=== PATIENT | male | born 1965 | race Caucasian/White ===

== ENCOUNTER 2018-04-26 17:41 | Outpatient (REF) | payer OTHER, SELFPAY ==
[2018-04-26 20:55] LABS: Absolute Basophil Count 0.03 k/cumm (0.0-0.2); Absolute Eosinophil Count 0.25 k/cumm (0.0-0.7); Absolute Lymphocyte Count 2.09 k/cumm (1.2-3.4); Absolute Monocyte Count 0.56 k/cumm (0.11-0.7); Absolute Neutrophil Count 4.21 k/cumm (1.2-6.7); Basophils % 0.4; Eosinophils % 3.5; HCT 43.7 % (40.0-50.0); HGB 15.3 g/dL (13.5-17.5); Lymphocytes % 29.3; Mean Corpuscular Hemoglobin 32.1 pg (27.0-33.0); Mean Corpuscular Volume 91.8 fL (80-95); Mean Platelet Volume 10.9 fL (8.0-11.0); Monocytes % 7.8; Platelet Count 245 x1000/uL (130-400); RBC 4.76 m/cumm (4.50-6.00); RBC Distribution Width 12.5 % (11.8-14.1); White Blood Cell Count 7.14 k/cumm (4.4-10.8)
[2018-04-26 21:09] LABS: ALT 24 U/L (12-78); AST 17 U/L (15-37); Alkaline Phosphatase 54 U/L (46-116); Anion Gap 5.1 mmol/L (3-11); BUN 17 mg/dL (7-18); Bilirubin, Total 0.4 mg/dL (0.2-1.0); C-Reactive Protein 0.25 mg/dL (0.0-0.3); CO2 30.9 mmol/L (21.0-32.0); Calcium 9.1 mg/dL (8.5-10.1); Chloride 105 mmol/L (98-107); Glucose 80 mg/dL (70-100); Potassium 4.1 mmol/L (3.5-5.1); Sodium 141 mmol/L (136-145); TSH (W/Ref FT4) 1.93 uIU/mL (0.358-3.74); Total Protein 6.7 g/dL (6.4-8.2)
[2018-04-26 22:02] LABS: ESR 3 MM/HR (1-20)
[2018-04-28 11:42] LABS: Lyme Ab w Rflx to Lyme Confirm Negative
== END 2018-04-26 18:01 ==
LOC: NCHCN 17:41
PROVIDERS: PCP Family Medicine; Visit Provider Family Medicine
DX: R51 Headache (principal); R53.81 Other malaise; R53.83 Other fatigue
CPT/HCPCS: 80053; 85652; 84443; 85025; 86140; 86618

== ENCOUNTER 2019-03-29 12:45 | Outpatient (REF) | payer SELFPAY ==
[2019-03-29 21:41] LABS: BUN 15 mg/dL (7-18); CREATININE 1.13 mg/dL (0.70-1.30); Calcium 9.1 mg/dL (8.5-10.1); Calculated LDL 129 mg/dL; Chloride 105 mmol/L (98-107); Cholesterol 203 mg/dL (50-200); Glucose 93 mg/dL (70-100); HDL Cholesterol 63 mg/dL (40-60); Sodium 141 mmol/L (136-145); Triglyceride 55 mg/dL (30-150)
[2019-03-29 21:50] LABS: COMMENT (LAB VIEW ONLY) 18.02 mg/dL
== END 2019-03-29 13:05 ==
LOC: NCHCN 12:45
PROVIDERS: PCP Family Medicine; Visit Provider Nurse Practitioner Family
DX: I10 Essential (primary) hypertension (principal); M50.10 Cervical disc disorder with radiculopathy, unspecified cervical region; I48.91 Unspecified atrial fibrillation
CPT/HCPCS: 80048; 80061; 82043; 82570

== ENCOUNTER 2023-04-22 18:09 | Emergency (ER) | payer OTHER, SELFPAY ==
[2023-04-22 18:07] VITALS: BP 151/101; PULSE 62; RESP 14; TEMP 36.3; O2SAT 100
--- NOTE | 2023-04-22 18:15 | DI.RAD_ITS ---
Exam(s) XR KNEE RT 4V AP,LAT,JO,PAT EXAM: XR KNEE RT 4V AP,LAT,JO,PAT CLINICAL HISTORY: injury, hyperflexion, unable to extent knee. TECHNIQUE: 2D digital imaging was performed. COMPARISON: No exams were available for comparison FINDINGS: Four views. There is prominent soft tissue swelling anteriorly and a small osteophytic density seen approximately 2 cm above the superior pole the patella. Findings are suspicious for quadriceps tendon injury. Se samoid bones are noted in the patellar ligament. There also appears to be a joint effusion No patellar dislocation. Tibial plateau is intact. Femoral condyles intact. Minimal degenerative c hanges. IMPRESSION: Findings as above. Suspect quadriceps tendon tear. DATA REPOSITORY: RADIATION DOSE DELIVERED:
--- NOTE | 2023-04-22 18:24 | W.ED.GENAD ---
Discharge Plan Disposition Patient Disposition: Home Discharge Details Clinical Impression: Quadriceps tendon rupture Primary Care Provider: Denisse Byers ED Provider: Martha Lira Home Meds and New Rx's Prescriptions: New oxycodone 5 mg capsule 5 mg PO Q8H PRNQty: 10 0RF Continued aspirin 81 mg tablet 81 mg PO DAILY omega-3 fatty acids [Fish Oil Concentrate] 1,000 mg capsule 1,000 mg PO DAILY flaxseed oil Oil 5 ml MC DAILY turmeric 400 mg capsule PO DAILY triamcinolone acetonide 0.5 % ointment 1 applic TP DAILY magnesium oxide 400 mg magnesium tablet 400 mg PO DAILY Discontinued tramadol 50 mg tablet 50 mg PO HS Discharge Instructions Additional Instructions: Keep your knee immobilizer in place Use crutches with ambulation Take the oxycodone as needed for discomfort, this can cause constipation and is addictive The orthopedist office will call you tomorrow to schedule likely surgery on Thursday, apply ice Return earlier should you have new or worsening complaints Do not take tramadol with oxycodone Stand Alone Forms: Work Release Referrals: Chava Rodriguez MD [ [facility] STAFF PHYSICIAN] - Medical Decision Making This 58-year-old male presents with report of right knee swelling and pain. Unable to extend his knee secondary to weakness, no redness, large right knee effusion without erythema, neurovascularly intact, no tenderness right hip, small abrasion to right hand, flexion and extension intact, tetanus up-to-date X-ray ordered with effusion and small avulsion with concern for quadriceps tendon rupture, case discussed with Dr. Rodriguez who will follow up with patient for likely surgery Thursday Knee immobilizer and crutches supplied HPI General Date/Time Provider Initiated Documentation: 04/22/23 18:18. HPI Narrative: This 58-year-old male presents with report of injury while hiking, hyperflexion injury while hiking and now unable to ambulate on affected leg, unable to extend his knee at all. States this happened just prior to arrival, denies any additional injuries aside from right hand injury which is not bothersome to patient. Tetanus up-to-date. Denies history of coagulopathy. Related Data Home Medications Medication Instructions Recorded Confirmed flaxseed oil 5 ml miscellaneous DAILY 02/13/20 03/27/20 magnesium oxide 400 mg PO DAILY 02/13/20 03/27/20 triamcinolone acetonide 0.5 % 1 applic topical DAILY 02/13/20 03/27/20 topical ointment turmeric 400 mg capsule mg PO DAILY 02/13/20 03/27/20 aspirin 81 mg tablet 81 mg PO DAILY 03/27/20 03/27/20 omega-3 fatty acids 1,000 mg 1,000 mg PO DAILY 03/27/20 03/27/20 capsule (Fish Oil Concentrate) oxycodone 5 mg capsule 5 mg PO Q8H PRN #10 caps 04/22/23 Previous Rx's Medication Instructions Recorded oxycodone 5 mg capsule 5 mg PO Q8H PRN #10 caps 04/22/23 Allergies Allergy/AdvReac Type Severity Reaction Status Date / Time simvastatin Allergy Verified 03/27/20 08:33 Bee stings Allergy Severe Uncoded 03/27/20 08:33 Hay fever Allergy Mild Uncoded 03/27/20 08:33 General Stated Complaint: Orthopedic MAXINE: 4 PFSH All Active Problems (Updated 04/22/23 @ 19:12 by JAYLEN Carbajal) Quadriceps tendon rupture (Acute) Cubital tunnel syndrome, bilateral (Acute) Bilateral carpal tunnel syndrome (Acute) Medical History (Updated 04/22/23 @ 19:12 by JAYLEN Carbajal) Hx of atrial fibrillation without current medication Social History Smoking/Tobacco Use Status: Never Smoking risk assessment performed?: Yes Alcohol Intake: current Details: OCCASIONALLY Drug use: Never Household members: spouse Housing: house Number of Children: 1 Pets and animals: No What is your relationship status?: Panel score (0-1 are the most socially isolated patients): 1 What type of physical activity do you participate in: none Seatbelt use: always Course Vital Signs Vital signs: Vital Signs Temperature 36.3 C L 04/22/23 18:07 Pulse 62 04/22/23 18:07 Respiratory Rate 14 04/22/23 18:07 Blood Pressure 151/101 H 04/22/23 18:07 Pulse Oximetry 100 04/22/23 18:07 Temperature 36.3 C L 04/22/23 18:07 Temperature Source Skin 04/22/23 18:07 Pulse 62 04/22/23 18:07 Respiratory Rate 14 04/22/23 18:07 Blood Pressure 151/101 H 04/22/23 18:07 Pulse Oximetry 100 04/22/23 18:07 Oxygen Delivery Method Room Air 04/22/23 18:07 Oxygen Flow Rate 0 04/22/23 18:07 Pain Level 7 04/22/23 18:07 Comment throbbing 04/22/23 18:07
[2023-04-22] MEDS: oxyCODONE 5 MG TAB PO (18:34)
--- NOTE | 2023-04-22 19:52 | DI.VRAD_ITS ---
PROCEDURE INFORMATION: Exam: XR Left Knee Exam date and time: 04/22/2023 6:43 PM Age: 58 years old Clinical indication: Other: Injury, hyperflexion, unable to extent knee TECHNIQUE: Imaging protocol: Radiologic exam of the left knee. Views: 4 or more views. COMPARISON: No relevant prior studies available. FINDINGS: Bones/joints: There is a tiny 6 mm x 10 mm x 2 mm sliver of bone located approximately 2.5 cm superior to the upper pole of the patella, presumably an acutely avulsed fragment. There are well corticated ossifications inferior to the patella with a chronic appearance, apparently located within the patellar tendon. The distal femur, proximal tibia, and proximal fibula appear intact. There is calcification projecting over the lateral aspect of the lateral meniscus. There is sharpening of the tibial spines. Soft tissues: There is heterogeneous masslike soft tissue density in the expected location of the quadriceps tendon. The patellar tendon appears grossly intact. IMPRESSION: Acute rupture of the quadriceps tendon with avulsion of a 6 mm x 10 mm x 2 mm bony fragment from the upper pole of the patella. MRI could be obtained for further evaluation. Dictated and Authenticated by: Dayo Norris MD. Ordering:LORNE Thomas MD
== END 2023-04-22 19:31 | disposition home or self-care (01) ==
LOC: ER 19:20
PROVIDERS: Emergency Provider Physician Assistant; PCP Family Medicine
DX: S76.111A Strain of right quadriceps muscle, fascia and tendon, initial encounter; W19.XXXA Unspecified fall, initial encounter; Y93.01 Activity, walking, marching and hiking
CPT/HCPCS: 29505; 99284; 73564

== ENCOUNTER 2023-04-24 10:56 | Day surgery (SDC) | payer OTHER, SELFPAY ==
--- NOTE | 2023-04-23 18:39 | W.ANESPRE ---
General Info Date of Service Date Performed: 04/24/23 Height: 5 ft 11 in Weight: 83.915 kg Body Mass Index (BMI): 25.7 Surgical Procedure: Operation Date: 04/24/23 12:40 Proposed Procedure Side Surgeon p Knee Ruptured Quad Tendon Repair Right Chava Rodriguez MD Meds Allergies and Home Medications Allergies Allergy/AdvReac Type Severity Reaction Status Date / Time simvastatin Allergy Verified 04/24/23 11:13 Bee stings Allergy Severe Uncoded 04/23/23 14:41 Hay fever Allergy Mild Uncoded 04/23/23 14:41 Home Medication Medication Instructions Recorded flaxseed oil 5 ml miscellaneous DAILY 02/13/20 magnesium oxide 400 mg PO DAILY 02/13/20 triamcinolone acetonide 0.5 % 1 applic topical DAILY 02/13/20 topical ointment turmeric 400 mg capsule 400 mg PO DAILY 02/13/20 aspirin 81 mg tablet 81 mg PO DAILY 03/27/20 omega-3 fatty acids 1,000 mg 1,000 mg PO DAILY 03/27/20 capsule (Fish Oil Concentrate) oxycodone 5 mg capsule 5 mg PO Q8H PRN #10 caps 04/22/23 tramadol 50 mg tablet 50 mg PO Q8H PRN 04/23/23 Current Visit Medications: Current Medications Generic Name Dose Route Start Last Admin Trade Name Freq PRN Reason Stop Dose Admin Ringer's Solution 1,000 mls @ 30 mls/hr 04/24/23 06:00 IV 04/24/23 23:59 INFUSION MILIND Cefazolin Sodium/Dextrose 2 gm in 50 mls @ 100 mls/hr 04/24/23 06:00 Ancef Duplex IVPB 04/24/23 23:59 PREOP MILIND IV Miscellaneous Supplies 1 each 04/24/23 06:00 Iv Access IV 04/24/23 23:59 DIRECTED MILIND Sodium Chloride 0 ml 04/24/23 06:00 Normal Saline Flush 10 Ml Syr IV 04/24/23 23:59 PRN PRN Sodium Chloride 0 ml 04/24/23 06:00 Normal Saline 10 Ml Vial IJ 04/24/23 23:59 DIRECTED PRN Sterile Water 0 ml 04/24/23 06:00 Water,Injection,Sterile 10 Ml Vial IJ 04/24/23 23:59 DIRECTED PRN PFSH Active Problems Active Problems: Problem Status Onset Code Bilateral carpal tunnel syndrome G56.03 Cubital tunnel syndrome, bilateral G56.23 Rupture of right quadriceps tendon 04/22/23 S76.111A Medical History Medical History (Updated 04/23/23 @ 14:51 by Varun Rodriguez) History of cardioversion x3-last 2017 Hx of atrial fibrillation without current medication Hx of low back pain Hx of vertigo PAF (paroxysmal atrial fibrillation) Surgical History Surgical History (Updated 04/24/23 @ 11:12 by Clarke Quevedo) History of cystoscopy Hx of hernia repair Hx of tonsillectomy Tobacco Smoking/Tobacco Use Status: Never Alcohol Alcohol Intake: current Alcohol intake frequency: holidays/special occasions only Details: OCCASIONALLY Substance Use Substance use: Occasionally Substance use type: marijuana Vital Signs and Lab Results Lab Results Blood Type / Crossmatch: No Data to Display Complete Blood Count: No Data to Display Complete Metabolic Panel: No Data to Display Liver Function Panel: No Data to Display Coagulation Panel: No Data to Display Cardiac Panel: No Data to Display Arterial Blood Gas: No Data to Display Venous Blood Gas: No Data to Display Pancreas Panel: No Data to Display Thyroid Panel: No Data to Display Infectious Disease: No Data to Display Blood Cultures: No Data to Display Toxicology Panel: No Data to Display Anesthesia Assessment and Plan Anesthesia History Personal History: No History of Anesthesia Complications Family History: No Family History of Anesthesia Complications Exercise Tolerance Exercise Tolerance: Metabolic Equivalents>4 Cardiac & Pulmonary Exam Cardiac Exam: Normal S1/S2 Heart Sounds Pulmonary Exam: Clear Bilateral Breath Sounds Implantable Cardiac Device Does patient have a Pacemaker or an ICD?: No Airway Exam Known Difficult Airway: No Mallampati Class: 3 Mouth Opening: Normal (> 3cm) Thyromental Distance: Less than 3 cm Neck Range of Motion: Full ROM Neck Circumference: Normal Teeth Condition: Normal Dentition ASA Classification ASA Score: ASA 2 Emergency Case?: No NPO Status NPO Status: NPO Clears >2 hours, Solids >8 hours Anesthesia Plan Resuscitation Status: Full Code Anesthesia Technique: General Anesthesia Airway Planned: Endotracheal Tube Pain Management: Surgeon and patient request nerve block Monitors Used: Standard Monitors Preoperative Comments:: 58 yo male for quad tendon repair. Sig PMHx: pAfib (CV x 3), vertigo, never smoker, occ EtOH/cannabis. ECHO: [id number]%, no WMA, mild MR.
[2023-04-24] VITALS (12 sets, daily range): BP systolic 104–153; BP diastolic 63–98; PULSE 64–87; RESP 15–22; TEMP 36.5–37.1; O2SAT 96–100; BMI 25.7
--- NOTE | 2023-04-24 10:54 | PDOC.DSDIS_ITS ---
Date of service: 04/24/23 Time of Service: 15:00 Discharge Plan Disposition Patient Disposition: Home Condition: Stable Discharge Details Attending Provider: Chava Rodriguez Primary Care Provider: Denisse Byers Home Meds and New Rx's Prescriptions: New aspirin 81 mg tablet,delayed release (DR/EC) 81 mg PO DAILY 14 Days Qty: 14 0RF naproxen 250 mg tablet 250 - 500 mg PO BID PRNQty: 40 0RF Rx Instructions: take with a meal oxycodone 5 mg tablet 5 - 10 mg PO Q4H MDD 30 mg PRN (Reason: moderate to severe pain) Qty: 18 0RF Continued aspirin 81 mg tablet 81 mg PO DAILY omega-3 fatty acids [Fish Oil Concentrate] 1,000 mg capsule 1,000 mg PO DAILY tramadol 50 mg tablet 50 mg PO Q8H PRN flaxseed oil Oil 5 ml MC DAILY turmeric 400 mg capsule 400 mg PO DAILY triamcinolone acetonide 0.5 % ointment 1 applic TP DAILY magnesium oxide 400 mg magnesium tablet 400 mg PO DAILY oxycodone 5 mg capsule 5 mg PO Q8H PRNQty: 10 0RF Discharge Instructions Additional Instructions: Surgery: Right knee quadriceps tendon repair Activity: Weightbearing in full extension-only for 6 weeks. Use crutches for protection. May use knee brace until comfortable and confident maintaining knee straight with quadriceps. Recommend elevation to minimize swelling and discomf ort. Encourage ankle pumps, wiggle toes, and quad sets to improve circulation and improve muscular control. Restrictions- No active knee extension for 6 weeks. Range of motion: Full extension for 2 weeks followed by 0?30 degrees after week 2 and then advancing 15 degrees/week with goal 0-90 degrees flexion week 6 and 120 degrees flexion week 8. Merged With [facility] protocol Prescriptions: Aspirin 81 mg take 1 daily to prevent a blood clot for 2 weeks Naproxen 250 mg take 1-2 every 12 hours with a meal as needed for moderate pain Oxycodone 5 mg take 1-2 every 4-6 hours as needed for severe pain You may use [id number] Tylenol (acetaminophen) as needed for mild pain. These pain medications may be taken all at once or in different combinations as needed. Also, recommend Colace (docusate) as a stool softener as surgery and pain medicine cause constipation. You may try [id number]-ofa-zgoxmte diphenhydramine (Benadryl) 25-50 mg nightly as a sleep aid Dressings: Loosen/adjust Gee bandages as needed for comfort. May remove knee brace when resting. Keep Band-Aid in place until follow-up. Please keep it clean and dry. Follow-up: 10-[address] Rodriguez You may take off the leg compression stockings this evening at home. You may also leave them on a few days longer if you have a history of leg swelling or edema. Let us know right away if you develop any redness, drainage, fevers, chest pain, or trouble breathing. Do not drink alcohol or drive for at least 24 hours after anesthesia. Please call the office during business hours with any questions or concerns. Discharge Orders Discharge Orders: Discharge Order (Routine); Ordered 04/24/23 Ordered By: Chava Rodriguez DS: Diagnosis Discharge Diagnosis (1) Rupture of right quadriceps tendon: Status: Acute
[2023-04-24] MEDS: Lactated Ringers 1,000 ML 30 ML IV (11:55)
--- NOTE | 2023-04-24 12:18 | ROE_ITS ---
Date of service: 04/24/23 Time of Service: 12:19 Operative Note Operative Note DATE OF PROCEDURE: 04/24/23 PRE-OP DIAGNOSIS: Right quadriceps tendon rupture POST-OP DIAGNOSIS: same PROCEDURE: Right knee quadriceps tendon repair, CPT #17537 SURGEON: Chava Rodriguez OPERATIONAL COMMUNICATION CHIEF: Mona Parra ANESTHESIA TYPE: Local By Surgeon, General LMA/ETT and Primary Nerve Block Refer to Anesthesia Record ESTIMATED BLOOD LOSS: 10 COMPLICATIONS: None Patient was transported to: PACU Patient's condition: stable Indications: Please see complete medical record for details. Findings: Complete quadriceps tendon disruption and fraying remnant superior aspect of the patella with extension through the medial and lateral retinaculums. Single small osteochondral loose body removed from the knee joint through the traumatic arthrotomy. Procedure Description: In the operating room, general anesthesia was induced. The patient was positioned supine on the operating room table. All bony prominences were well- padded. Preoperative antibiotics were administered. The right knee was prepped and draped in the usual sterile fashion. The correct patient, procedure, and side of the procedure were all verified prior to incision. The quadriceps tendon defect at the superior margin of patella was readily palpable. A moderate-sized longitudinal incision centered about the defect was preinjected with 0.25% bupivacaine containing epinephrine. Incision was carried through skin subcutaneous tissue and readily encountered the quadriceps tendon defect and hematoma. The hematoma was evacuated, the knee joint was thoroughly irrigated and swept of any debris including an osteochondral small fragment that was removed and possibly pre-existing per the patient reports. The small osteochondral gladys on x-rays in the quadriceps tendon was identified laterally. The superior margin of patella was thoroughly prepared to optimize bone and tendon healing by debriding frayed tendon, abrading the bone edge, and to suture anchor repair sites were marked. On the corresponding area on the quadriceps tendon a suture tape was then used to run a Krak?w stitch proximal and back distal for both anchors. The 2.5 mm and 3.5 mm drills were then used to predrill through the hard bone for the suture anchors followed by the SwiveLock tap. The patella was maintained in place, knee placed into full extension, and the medial suture tape repair sutures loaded on a 4.75 mm swivel lock anchor with appropriate tension maintained on the quadriceps tendon and a small longitudinal split made to accommodate suture anchor placement and tendon reapproximation to the prepared bone surface. The suture anchor deployed with excellent fixation strength. This was repeated on the lateral side. The repair sutures were cut short. The suture anchors each was double loaded with sliding FiberWire stitches. Sequentially starting medially each pair of FiberWire sutures was shuttled with a free meter back from the anchor deep to superficial and then locked in a ripstop fashion passed a Krak?w suture tape stitch and then tied together for an additional 4 repairs creating an excellent tendon to bone secure and stable interface encompassing the span of the tendon injury and repa ir to bone from medial to lateral. The medial and lateral retinacular defects were inspected and repaired using suture tape [id number] fashion couple stitches both medially and laterally. The patellar surface and quadriceps tendon most superficially had cerda tissue now reapposed likely superficial quadriceps and extensor mechanism and periosteum, which was repaired with 0 Vicryl. The repair was inspected and quite strong and solid. It was stable through flexion to at least 45 degrees without any gapping. The wound was copiously irrigated with normal saline. Subcutaneous tissue was closed using 2-0 Monocryl. Skin closed using 3-0 Monocryl buried running with skin glue applied over the incision followed by a Mepilex Band-Aid. Gentle Gee bandage compression was applied foot ankle leg knee and thigh followed by placement of a knee brace in full extension. The patient awoke from anesthesia without complication and was transferred to the recovery room in a stable condition.
[2023-04-24] MEDS: ceFAZolin 2 GM/50 ML BAG IVPB (12:21)
--- NOTE | 2023-04-24 12:22 | W.ANESNERVE ---
Nerve Block Single Injection Procedure Date and Time Date Performed: 04/24/23 Procedure Start: 12:38 Location Where Procedure Performed Procedure Location: Day Surgery Unit Reason Performed: Postoperative Analgesia Requesting Provider: Chava Rodriguez Timeout Performed Timeout Performed: Yes Monitoring Used ECG, Blood Pressure and SpO2 Sterility Sterility: Hand Hygiene Sedation Given During Procedure Sedation Given (Indicate Dose Given): Versed IV Dose:: 2 mg Patient Mental Status Patient Mental Status: Sedate with meaningful communication Nerve Block 1st Nerve Block: Laterality: Right Block Type: Femoral Ultrasound Image Saved?: No Needle / Catheter Used: 100mm SonoPlex II Local Anesthetic Bolus (Indicate Dose Given): Lidocaine used for local infiltration of skin and Bupivacaine 0.375% Dose:: 20 mL Additives (Indicate Dose Given): Epinephrine to make 1:400,000 (2.5mcg/ml) Dose:: 50 mcg and Precedex Dose:: 50 mcg Ultrasound: Sterile probe cover and gel used Nerve Stimulator: Supplement to Ultrasound use and No twitch or parasthesia noted < 0.5 mA Paresthesia: None Procedure Tolerated: No Complications Procedure Outcome: Successful Performed By: Joey Oneill
[2023-04-24] MEDS: Bupivacaine 0.25% Pres-Free 30 ML VIAL (12:47)
--- NOTE | 2023-04-24 14:40 | W.ANESPOSTOP ---
Postoperative Evaluation Date, Time and Location Date Performed: 04/24/23 Time Performed: 14:40 Patient Location: PACU Vital Signs Most Recent Imported Vital Signs: Most Recent Vital Signs Temp Pulse Resp BP Pulse Ox 36.8 C 80 17 121/67 97 04/24/23 14:36 04/24/23 14:36 04/24/23 14:36 04/24/23 14:36 04/24/23 14:36 Pain Score Most Recent Pain Score: Most Recent Pain Score Pain Level 0 04/24/23 12:15 Assessment Mental Status: Arousable with meaningful communication Airway and Respiratory Function: Patent airway with normal (patient baseline) respiratory exam Cardiovascular Function: Hemodynamically Stable Hydration Status: Adequately Hydrated Nausea & Vomiting: No Nausea or Vomiting Pain: Pain is tolerable per patient Peripheral Nerve Block: Regional nerve block not resolved at time of post operative discharge
== END 2023-04-24 16:00 | disposition home or self-care (01) ==
PROVIDERS: PCP Family Medicine; Visit Provider Student in an Organized Health Care Education/Training Program
PROC: (CPT 27385; principal; 2023-04-24 12:30)
DX: S76.111A Strain of right quadriceps muscle, fascia and tendon, initial encounter (principal); M23.41 Loose body in knee, right knee; I48.0 Paroxysmal atrial fibrillation
CPT/HCPCS: 27385; J0131; J0171; J0690; J1100; J1885; J2250; J2405; J2704; J3475

== ENCOUNTER 2023-04-26 07:25 | Emergency (ER) | payer OTHER, SELFPAY ==
[2023-04-26 07:31] VITALS: BP 133/77; PULSE 81; RESP 16; TEMP 36.8; O2SAT 99
--- NOTE | 2023-04-26 08:30 | ED.GENADUL_ITS ---
Discharge Plan Disposition Patient Disposition: Home Condition: Stable Discharge Details Clinical Impression: Postoperative pain of extremity Primary Care Provider: Denisse Byers ED Provider: Jeff Choi Home Meds and New Rx's Prescriptions: New diazepam [Valium] 2 mg tablet 2 mg PO BID PRN (Reason: spasms) Qty: 10 0RF cephalexin 500 mg capsule 500 mg PO QID Qty: 27 0RF Continued aspirin 81 mg tablet 81 mg PO DAILY omega-3 fatty acids [Fish Oil Concentrate] 1,000 mg capsule 1,000 mg PO DAILY tramadol 50 mg tablet 50 mg PO Q8H PRN flaxseed oil Oil 5 ml MC DAILY turmeric 400 mg capsule 400 mg PO DAILY triamcinolone acetonide 0.5 % ointment 1 applic TP DAILY magnesium oxide 400 mg magnesium tablet 400 mg PO DAILY oxycodone 5 mg capsule 5 mg PO Q8H PRNQty: 10 0RF aspirin 81 mg tablet,delayed release (DR/EC) 81 mg PO DAILY 14 Days Qty: 14 0RF naproxen 250 mg tablet 250 - 500 mg PO BID PRNQty: 40 0RF Rx Instructions: take with a meal oxycodone 5 mg tablet 5 - 10 mg PO Q4H MDD 30 mg PRN (Reason: moderate to severe pain) Qty: 18 0RF Discharge Instructions Additional Instructions: Please take antibiotic as prescribed. Please contact your orthopedic team tomorrow to arrange timely follow-up this week. Return to the ER immediately for any worsening or new concerning symptoms. Referrals: [facility] [Provider Group] Denisse Byers [Primary Care Provider] - Medical Decision Making 58-year-old male presents 2 days status post right quadriceps tendon repair with pain, spasm, erythema and warmth. Patient afebrile. Surgical wound without drainage. Distal leg is mildly erythematous and warm to the touch with intermittent spasm. Toradol 30 mg IM and Valium 2 mg p.o. given for discomfort. I communicated with Dr. Hall who felt highly unlikely to have deep infection at 2 days postop. Suspect bleeding around site and spasms. Will cover with Keflex and have patient follow-up with orthopedics tomorrow in clinic. HPI General Mode of arrival: ambulatory . Date/Time Provider Initiated Documentation: 04/26/23 07:55 . Limitations to Documentation: no limitations . Information obtained by: patient . HPI Narrative: 58-year-old male presents 2 days status post quadriceps tendon repair with complaint of postoperative pain. Patient notes pain and spasm of his right quadriceps with associated redness and warmth. Patient notes area started to have spasm yesterday. Pain is anterior. Area seems more red and warm today. Patient took oxycodone, ibuprofen, Aleve yesterday without relief of symptoms. He has no associated fever. No lower leg swelling or pain. Patient notes he had similar injury and repair of his left quadriceps tendon sometime ago and feels that this postoperative course is different than prior. Patient and both note concern for band of this tape under the skin, oriented horizontally across distal thigh that was apparent yesterday and no longer apparent. Related Data Home Medications Medication Instructions Recorded Confirmed flaxseed oil 5 ml miscellaneous DAILY 02/13/20 04/26/23 magnesium oxide 400 mg PO DAILY 02/13/20 04/26/23 triamcinolone acetonide 0.5 % 1 applic topical DAILY 02/13/20 04/26/23 topical ointment turmeric 400 mg capsule 400 mg PO DAILY 02/13/20 04/26/23 aspirin 81 mg tablet 81 mg PO DAILY 03/27/20 04/26/23 omega-3 fatty acids 1,000 mg 1,000 mg PO DAILY 03/27/20 04/26/23 capsule (Fish Oil Concentrate) oxycodone 5 mg capsule 5 mg PO Q8H PRN #10 caps 04/22/23 04/26/23 tramadol 50 mg tablet 50 mg PO Q8H PRN 04/23/23 04/26/23 aspirin 81 mg tablet,delayed 81 mg PO DAILY Prevent blood clot 04/24/23 04/26/23 release 14 days #14 tabs naproxen 250 mg tablet 250 - 500 mg PO BID PRN #40 tabs 04/24/23 04/26/23 oxycodone 5 mg tablet 5 - 10 mg PO Q4H PRN moderate to 04/24/23 04/26/23 severe pain #18 tabs cephalexin 500 mg capsule 500 mg PO QID #27 caps 04/26/23 diazepam 2 mg tablet (Valium) 2 mg PO BID PRN spasms #10 tabs 04/26/23 Previous Rx's Medication Instructions Recorded oxycodone 5 mg capsule 5 mg PO Q8H PRN #10 caps 04/22/23 aspirin 81 mg tablet,delayed 81 mg PO DAILY Prevent blood clot 04/24/23 release 14 days #14 tabs naproxen 250 mg tablet 250 - 500 mg PO BID PRN #40 tabs 04/24/23 oxycodone 5 mg tablet 5 - 10 mg PO Q4H PRN moderate to 04/24/23 severe pain #18 tabs cephalexin 500 mg capsule 500 mg PO QID #27 caps 04/26/23 diazepam 2 mg tablet (Valium) 2 mg PO BID PRN spasms #10 tabs 04/26/23 Allergies Allergy/AdvReac Type Severity Reaction Status Date / Time simvastatin Allergy Verified 04/26/23 07:36 Bee stings Allergy Severe Uncoded 04/26/23 07:36 Hay fever Allergy Mild Uncoded 04/26/23 07:36 General Stated Complaint: Orthopedic MAXINE: 3 Review of Systems Musculoskeletal Musculoskeletal: Reports as per HPI Integumentary/Breasts Skin/Breast: Reports as per HPI PFSH All Active Problems (Updated 04/26/23 @ 08:53 by Jeff Choi MD) Bilateral carpal tunnel syndrome (Acute) Cubital tunnel syndrome, bilateral (Acute) Rupture of right quadriceps tendon (Acute 04/22/23) Postoperative pain of extremity (Acute) Medical History History of cardioversion x3-last 2017 Hx of atrial fibrillation without current medication Hx of low back pain Hx of vertigo PAF (paroxysmal atrial fibrillation) Surgical History History of cystoscopy Hx of hernia repair Hx of tonsillectomy Social History Smoking/Tobacco Use Status: Never Smoking risk assessment performed?: Yes Alcohol Intake: current Alcohol Intake frequency: holidays/special occasions only Details: OCCASIONALLY Drug use: Occasionally Substance use type: marijuana Household members: spouse Housing: house Number of Children: 1 Pets and animals: No What is your relationship status?: Panel score (0-1 are the most socially isolated patients): 1 What type of physical activity do you participate in: none Seatbelt use: always Do you feel safe at home: Yes Do you feel safe in your relationship?: Yes Exam Const General: cooperative and no acute distress HENMT Mouth: moist mucous membranes Cardio Rate: regular rate and not tachycardic Rhythm: regular rhythm Skin General skin exam: no rashes or lesions noted Neuro General: patient alert, patient awake and tone normal Extrem Right lower extremity: hip/thigh Details: tenderness Location: other (distal upper leg), swelling Location: other (distal upper leg) and warmth (distal upper leg) and lower leg Details: no edema; no erythema and no tenderness Other: 2+DP, distal motor and sensation intact Course Vital Signs Vital signs: Vital Signs Temperature 36.8 C 04/26/23 07:31 Pulse 81 04/26/23 07:31 Respiratory Rate 16 04/26/23 07:31 Blood Pressure 133/77 04/26/23 07:31 Pulse Oximetry 99 04/26/23 07:31 Temperature 36.8 C 04/26/23 07:31 Temperature Source Temporal Artery Scan 04/26/23 07:31 Pulse 81 04/26/23 07:31 Respiratory Rate 16 04/26/23 07:31 Respiratory Effort Normal, Non-Labored 04/26/23 07:36 Blood Pressure 133/77 04/26/23 07:31 Blood Pressure Position Sitting 04/26/23 07:31 Pulse Oximetry 99 04/26/23 07:31 Oxygen Delivery Method Room Air 04/26/23 07:31 Oxygen Flow Rate 0 04/26/23 07:31 Pain Level 8 04/26/23 07:50 PAWSS Have you Been Recently Intoxicated or Drunk Within the Last 30 days?: No Have you Ever Experienced Previous Episodes of Alcohol Withdrawal?: No Have you ever Experienced Withdrawal Seizures?: No Have you ever Experienced Delirium Tremens(DT)s?: No Have you ever undergone Alcohol Rehabilitation Treatment (i.e, inpt ot outpatient treatment programs)?: No Have you ever Experienced Blackouts?: No Have you ever Combined Alcohol with other Downers within the last 90 days?: No Have you ever Combined Alcohol with any other Substance of Abuse during the last 90 days?: No Positive Blood Alcohol level on Presentation? [PCS.BAL]: No Evidence of Increased Autonomic Activity (i.e. HR>120, tremor, sweating, agitation, nausea)?: No Result: 0
[2023-04-26] MEDS: Cephalexin 500 MG CAP PO (08:50)
[2023-04-26] MEDS: diazePAM 2 MG TAB PO (08:50)
[2023-04-26] MEDS: Ketorolac 30 MG/ML VIAL IM (08:51)
== END 2023-04-26 09:04 | disposition home or self-care (01) ==
PROVIDERS: Emergency Provider Student in an Organized Health Care Education/Training Program; PCP Family Medicine
DX: G89.18 Other acute postprocedural pain (principal)
CPT/HCPCS: 96372; 99283; 99284; J1885

== ENCOUNTER 2023-06-24 13:51 | Outpatient (CLI) | payer OTHER, SELFPAY ==
--- NOTE | 2023-06-24 06:00 | DI.RAD_ITS ---
Exam(s) XR PAIN CLINIC CERVICAL SP 2V EXAM: XR PAIN CLINIC CERVICAL SP 2V CLINICAL HISTORY: Dx: Cervical Spondylosis TECHNIQUE: 2D and realtime digital imaging was performed. CONTRAST MATERIAL: Refer to procedure report. COMPARISON: No exams were available for comparison FINDINGS: Fluoroscopy was provided for Dr. Troncoso during the performance of a cervical medial branch block. Ple ase refer to the procedure report for complete details. Ka,r=3.39 mGy IMPRESSION:
[2023-06-24 14:02] VITALS: BP 133/101; PULSE 97; RESP 20; TEMP 36.7; O2SAT 98
--- NOTE | 2023-06-24 14:48 | PDOC.PAIN_ITS ---
Date of service: 06/24/23 Time of Service: 14:48 Pain Managment Procedure Note Procedure Note Procedure Note: PROCEDURE NOTE LEFT SIDED CERVICAL MEDIAL BRANCH BLOCKS Date of Service: June 24, 2023 Patient: Nas Clarke Provider: Sae Troncoso DO, MPH Nas Clarke has been referred to the [facility] for cervical medial branch blocks. Pre-operative diagnosis: Cervical Spondylosis without Myelopathy Post-operative diagnosis: Same Pre-procedure pain: VAS= 5/10 COMMENTS: I previously evaluated him in the office. [place] interviewed and the medical records were reviewed. There were no medical, pharmacologic, radiographic or other structural contraindications to attempting fluoroscopically guided local anesthetic cervical medial branch blo cks. Risks and potential side effects were discussed. I also discussed the potential benefit(s) of the procedure with Nas, and voiced concerns were addressed. After Nas was completely informed about the procedure, the printed consent form was signed. A standard time-out procedure was performed. Nas was placed in the lateral decubitus position on the fluoroscopy table with the effected side up. Automated blood pressure cuff and pulse oximeter were applied. The skin entry points for approaching the anatomic target points of the segmental medial branches of Left C2 (TON), C3,C4,C5 were identified with fluoroscopy and marked. The skin at the target site area was thoroughly prepared with Chlorhexadine. The skin was then draped. Next, a 25 gauge 3.5 spinal needle was placed under fluoroscopic guidance down on to the target point (the articular pillar) for each respective segmental medial branch. Position was confirmed in A/P and lateral views. Aspiration revealed no blood or clear fluid. Next, 0.25ml of omnipaque 240 was injected at each level. No contrast following a vascular or neural pattern was visualized under continuous f luoroscopy. Next, 0.25 ml of preservative-free 0.5% bupivicaine was injected at each level. (49 mls of Omnipaque was wasted) There was no unusual discomfort expressed by Nas. The needles were withdrawn without difficulty. Nas was observed and was without hemodynamic, neurologic, or allergic reactions.? Fluoroscopic images were digitally archived. Nas's vital signs were stable throughout the procedure and were as recorded in the docflowsheet by the nursing staff. Provacative testing using the Modified Giang's facet loading test Left side Directly before the block VAS (0-10) = 5/10 Five minutes after the block VAS (0-10) = 0/10 Percentage relief obtained with this diagnostic block 100% Any improved physical functioning directly after the blocks? Able to move his neck in all positions. Follow up plans and appointments were discussed with Nas. Nas was instructed to keep careful note of how the usual pain was modified by these injections. Specifically, to keep a pain diary for the next 4 hours using a numeric pain scale of 0-10 and report these results. Post procedure instruction was given as documented in the nursing documentation and having met discharge criteria, the patient was [facility] from the [facility]. Based on the medial branches blocked today, if Nas has adequate relief and we are able to proceed to radiofrequency ablation, the treatment should result in the denervation of the Left C2-C3, C3-C4 and C4-C5 facet joints. We would expect to denervate a total of 3 facets during the radiofrequency ablation. COMMENTS: No apparent complications. Post-procedure pain: VAS= 0/10 Nas will call back with 0-4 hour post-procedure pain scores. I personally performed the entire procedure. SAE TRONCOSO DO, MPH ABPM&R-subspecialty board certification in Pain Medicine [facility]
[2023-06-24 14:50] VITALS: BP 146/85; PULSE 93; RESP 23; O2SAT 98
[2023-06-24] MEDS: Omnipaque 240 MG/ML 50 ML BTL IJ (14:53)
[2023-06-24] MEDS: Bupivacaine 0.5% Pres-Free 10 ML VIAL IJ (14:54)
== END 2023-06-24 13:52 | disposition home or self-care (01) ==
LOC: PC 13:51
PROVIDERS: PCP Family Medicine; Visit Provider Preventive Medicine Occupational Medicine
DX: M47.812 Spondylosis without myelopathy or radiculopathy, cervical region (principal)
CPT/HCPCS: 00123; 64490; 64491; 64492; 72040; Q9967

== ENCOUNTER 2024-01-11 12:46 | Outpatient (CLI) | payer OTHER, SELFPAY ==
--- NOTE | 2024-01-11 07:00 | DI.RAD_ITS ---
Exam(s) XR PAIN CLINIC CERVICAL SP 2V EXAM: XR PAIN CLINIC CERVICAL SP 2V CLINICAL HISTORY: DX: Cervical radiculopathy. TECHNIQUE: Fluoroscopy was provided for the referring physician for guidance with performing pain cl inic injection procedure. COMPARISON: No exams were available for comparison FINDINGS: Please see procedure note for details. Fluoro time: 22.7 seconds RADIATION DOSE DELIVERED: Ka,r=4.34 mGy
[2024-01-11 12:55] VITALS: BP 127/88; PULSE 58; RESP 20; TEMP 36.7; O2SAT 99
[2024-01-11 13:33] VITALS: PULSE 88; RESP 14; O2SAT 94
[2024-01-11 13:40] VITALS: PULSE 93; RESP 12; O2SAT 98
[2024-01-11 13:44] VITALS: BP 154/92; PULSE 101
--- NOTE | 2024-01-11 13:44 | PDOC.PAIN ---
Date of service: 01/11/24 Time of Service: 13:44 Pain Managment Procedure Note Procedure Note Procedure Note: Procedure Note Cervical Interlaminar Epidural Steroid Injection Date of Service: January 11, 2024 Patient:Nas Warren? Provider:? Chad Troncoso DO, MPH Nas has been referred to the [facility] for cervical epidural steroid injection.? Pre-operative diagnosis: Cervical Radiculopathy Post-operative diagnosis: Same Pre-procedure pain: VAS= 8/10 Comments: I previously evaluated the patient in the office. His symptoms are unchanged. Nas was interviewed and the medical record was reviewed.? There were no medical, pharmacologic, radiographic or other structural contraindications to attempting fluoroscopically guided cervical interlaminar epidural steroid injection.? Risks, potential side effects, indications, and potential benefits of the procedure were reviewed with Nas.? Questions and concerns were addressed.? After it was clear that the patient was fully informed about the procedure, the printed consent form was signed by the patient and myself.? Nas was placed in the prone position on the fluoroscopy table and automated blood pressure cuff as well as pulse oximeter was applied. A standard time-out procedure was performed. The skin entry point for entering the epidural space by a midline C7-T1 interlaminar approach was identified under fluoroscopy and marked.? The skin entry point was thoroughly cleaned with Chlorhexadine preparation and the skin was draped.? Next a mixture of 2 mls of 1% lidocaine was infiltrated into the area of the planned skin entry point and underlying subcutaneous tissues.? Next an 18 gauge Tuohy needle was placed under fluoroscopic guidance and with loss of resistance technique into the epidural space utilizing multiple AP and 55 degree contralateral fluoroscopic views.? Upon correct needle placement and loss of resistance, there were no paresthesia or return of blood or CSF through the needle. Next 1 mls of preservative-free Omnipaque 240 was injected with clear epidural spread in the A/P and oblique views. Next, a solution of 15 mg of preservative-free Dexamethasone was injected. This was followed with 1ml of preservative-free normal saline. No unusual discomfort was expressed by Nas. The needle was withdrawn without difficulty. (49 mls of Omnipaque and 5 mg of Dexamethasone was wasted) Nas was observed and was without hemodynamic, neurologic, or allergic reactions.? Fluoroscopic images were digitally archived. Nas's vital signs were stable throughout the procedure and were as recorded in the doc flowsheet by the nursing staff.? If given, dosages of intravenous drugs for anxiolysis and analgesia were documented in MAR. Follow up plans and appointments were discussed with Nas.? Post procedure instruction was given as documented in nursing documentation and having met discharge criteria, Nas was discharged from the [facility]. A retrospective review of interlaminar cervical ESIs found that approximately two-thirds of patients with symptomatic cervical radiculopathy from disc herniation were able to avoid surgery for up to 1 year with treatment. Success rate was improved with earlier injection (< 100 days from diagnosis). Ramonita EL, Halle V, Loree L, Debra AN, Dread MOLINA. Cervical epidural steroid injections for symptomatic disc herniations. J Spinal Disord Tech. 2006 November;19(3):183-6. ? COMMENTS: No apparent complications. Post-procedure pain: VAS= 4/10. Nas to contact [facility] as needed. If at least 50% improvement in pain and/or function for at least 3 months is achieved, this procedure can be repeated. I personally completed the entire procedure. CHAD TRONCOSO DO, MPH ABPMR-subspecialty board certification in Pain Medicine [facility]
[2024-01-11 13:47] VITALS: BP 139/90; PULSE 79
[2024-01-11] MEDS: Dexamethasone Sod. Phos./Pres-Free 10 MG/ML VIAL IJ (13:49)
[2024-01-11] MEDS: Omnipaque 240 MG/ML 50 ML BTL IJ (13:50)
[2024-01-11] MEDS: Epidural Tray 1 EACH MC (13:51)
== END 2024-01-11 12:47 | disposition home or self-care (01) ==
LOC: PC 12:46
PROVIDERS: PCP Family Medicine; Visit Provider Preventive Medicine Occupational Medicine
DX: M54.12 Radiculopathy, cervical region (principal)
CPT/HCPCS: 62321; 72040; J1100; Q9967